=== PATIENT | male | born 1960 | race Caucasian/White ===

== ENCOUNTER → 2016-06-15 | Outpatient (CLI) | payer OTHER | END | disposition home or self-care (01) | LOC: EDSTATUS 08:30 → CFH 08:33 | PROVIDERS: ATTEND Nurse Practitioner Family | DX: R74.8 Abnormal levels of other serum enzymes (principal); Z90.49 Acquired absence of other specified parts of digestive tract | CPT/HCPCS: 76700 ==

== ENCOUNTER 2018-05-12 06:54 | Day surgery (SDC) | payer OTHER ==
[~2018-05-12] VITALS: Ht 175.3 cm; Wt 84.9 kg
[2018-05-12] MEDS ORDERED: SODIUM CHLORIDE 0.9% 1,000 ML IV SCH (08:00)
[2018-05-12 08:27] VITALS: BP 154/96
[2018-05-12] MEDS ORDERED: ROSU5TAB PO (08:32)
[2018-05-12] MEDS ORDERED: AMLO1CAP2 PO (08:32)
[2018-05-12] MEDS ORDERED: LIDOCAINE-MPF 1%, 5ML ONE (09:18)
[2018-05-12 10:49] LABS: GLUCOSE, CSF 62 mg/dL (40-80); TOTAL PROTEIN,CSF 60 mg/dL (15-45)
== END 2018-05-12 13:35 | disposition home or self-care (01) ==
LOC: OUT 06:54
PROVIDERS: ATTEND Physician Assistant
DX: M53.86 Other specified dorsopathies, lumbar region (principal); R90.89 Other abnormal findings on diagnostic imaging of central nervous system; R20.2 Paresthesia of skin; I10 Essential (primary) hypertension; Z72.89 Other problems related to lifestyle
CPT/HCPCS: 36415; 62270; 77003; 82040; 82042; 82784; 82945; 83873; 84157; 86645; 86695; 86696; 86762; 86777; 86778; 87070; 87205; 89051; J7030